=== PATIENT | male | born 1965 | race Caucasian/White ===

== ENCOUNTER 2016-07-30 17:02 | Emergency (ER) | payer SELFPAY ==
[2016-07-30] MEDS ORDERED: Lidocaine 1% w/Epinephrine 1:100K 20 ML VIAL ONE (17:12)
[2016-07-30] MEDS ORDERED: Bacitracin Zinc 1 Packet ONE (18:28)
--- NOTE | 2016-07-30 18:28 | RAD ---
TWO VIEWS LEFT KNEE: DATE: 07/30/16. PROVIDED CLINICAL HISTORY: Soft tissue injury. FINDINGS: No evidence for a fracture or other acute osseous abnormality. No evidence for radiopaque foreign b solitario. Mild knee joint capsular distention may reflect effusion. IMPRESSION: As above. POS: JANETT
--- NOTE | 2016-07-30 19:15 | ERRECORD ---
[facility] EMERGENCY RECORD HPI LACERATION (21:28 BPIC) CHIEF COMPLAINT: Patient presents for evaluation of laceration to knee, on the left, 4.1-8.0cm in length, through subcutaneous fascia, Foreign body present, Grossly contaminated. HISTORIAN: History provided by patient, pt was using a chainsaw and it slipped and went through his jeans and cut his anterior knee. sharp pain worse with movement or palpation of the knee. bleeding controlled. MECHANISM OF INJURY: Known mechanism. LOCATION: Symptoms are localized, most severe to jagged edges left anterior knee. ROS (21:30 BPIC) CONSTITUTIONAL: Negative constitutional review of systems. EYES: Negative eye review of systems. ENT: Negative ears, nose, throat review of systems. CARDIOVASCULAR: Negative cardiovascular review of systems. RESPIRATORY: Negative respiratory review of systems. GI: Negative gastrointestinal review of systems. MUSCULOSKELETAL: see hpi. SKIN: Negative skin review of systems. PSYCHIATRIC: Negative psychiatric review of systems. NOTES: All other ROS is negative except as listed in HPI. PAST MEDICAL HISTORY MEDICAL HISTORY: No past medical history, Notes: tetanus completed 2 years ago, Tetanus immunization up to date, Date of immunization: 07/30/2015 17:07. (17:08 MCBE) MALE SURGICAL HISTORY: Patient has no surgical history. (17:08 MCBE) PSYCHIATRIC HISTORY: No previous psychiatric history. (17:08 MCBE) SOCIAL HISTORY: Patient denies alcohol use, Patient denies drug use, Patient currently uses tobacco, smokes cigarettes. (17:08 MCBE) NOTES: I have reviewed and agree with the PMH/PSxH/FamHx/SocHx obtained by the nurse. (21:30 BPIC) KNOWN ALLERGIES No Known Drug Allergies CURRENT MEDICATIONS (17:06 MCBE) None VITAL SIGNS VITAL SIGNS: BP: 141/93, Pulse: 101, Resp: 18, Temp: 96.8 (Oral), Pain: 3, O2 sat: 97 on Room Air, Time: 07/30/2016 17:04. (17:04 MCBE) BP: 138/89, Pulse: 100, Resp: 18, Temp: 98.1, Pain: 0, O2 sat: 98 on RA, Time: 07/30/2016 18:41. (18:41 MCBE) &a-1R&a+25V*p+0X*a1112M*c152B*c15G*c2P*p-0X&a-25V&a+1RName: Rene Palacios : 1965 M51 MedRec: [id number] AcctNum: [id number] Prepared: ThuJul 30, 2016 21:39 by Interface Page 1 of 3 pMD [facility] EMERGENCY RECORD PHYSICAL EXAM CONSTITUTIONAL: Vital signs reviewed, Patient afebrile, Pulse normal, Blood pressure normal, Respiratory rate normal, Patient appears non toxic, Patient appears pain free, Patient alert and oriented to person, place and time. (21:30 BPIC) HEAD: Head exam included findings of head atraumatic, normocephalic. (21:30 BPIC) EYES: Eye exam included findings of eyelids normal to inspection, Pupils equally round and reactive to light, Extraocular muscles intact. (21:30 BPIC) ENT: ENT exam normal. (21:30 BPIC) NECK: Neck exam included findings of normal range of motion, Trachea midline. (21:30 BPIC) RESPIRATORY CHEST: Respiratory exam included findings of no respiratory distress, Breath sounds clear. (21:30 BPIC) CARDIOVASCULAR: Cardiovascular exam included findings of heart rate regular rate and rhythm, Heart sounds normal. (21:30 BPIC) LOWER EXTREMITY: 6 cm jagged laceration with smita particles and dirt within wound to the left anterior knee. base of wound visualized after cleaning in full range of motion of the knee. joint capsule not disturbed. fascia covering patella visualized. (21:31 BPIC) NEURO: Neuro exam findings include patient oriented to person, place and time, Speech normal. (21:30 BPIC) PSYCHIATRIC: Psychiatric exam included findings of patient oriented to person place and time, Normal affect. (21:30 BPIC) DOCTOR NOTES (21:32 BPIC) TEXT: I discussed the diagnosis with the patient prior to discharge. All questions were answered. There is no indication for admission currently and the patient will follow up with his primary care physician. Any pertinent labs or imaging was reviewed and dicussed with the patient. If any new or emergent symptoms occur, the patient will return to the emergency department. PROBLEM LIST No recorded problems DIAGNOSIS (18:31 BPIC) FINAL: PRIMARY: left knee laceration - complicated. PRESCRIPTION (18:32 BPIC) Keflex: CAPSULE : 500 mg : ORAL : Quantity: 500 Unit: mg Route: ORAL Schedule: 2 times a day Dispense: 10 Unit: cap(s) May substitute. Refills: No Refills . NOTES: No Refills. traMADol: TABLET : 50 mg : ORAL : Quantity: 50 Unit: mg Route: ORAL Schedule: every 6 hours PRN Dispense: 20 Unit: tab(s) May substitute. Refills: No Refills . NOTES: ^s=No Refills &a-1R&a+25V*p+0X*q4453I*c152B*c15G*c2P*p-0X&a-25V&a+1RName: Rene Palacios : 1965 [facility] [place] MedRec: [id number] AcctNum: [id number] Prepared: ThuJul 30, 2016 21:39 by Interface Page 2 of 3 pMD [facility] EMERGENCY RECORD No Refills. DISPOSITION PATIENT: Disposition Type: Discharge, Disposition: *Discharge Home, Condition: Good. (18:31 BPIC) Patient left the department. (18:43 MCBE) Velasquez: BPIC=MD Saeed Bryan MCBE=Elsie Brown &a-1R&a+25V*p+0X*o1511R*c152B*c15G*c2P*p-0X&a-25V&a+1RName: Rene Palacios : 1965 [facility] [place] MedRec: [id number] AcctNum: [id number] Prepared: ThuJul 30, 2016 21:39 by Interface Page 3 of 3 pMD MTDD
--- NOTE | 2016-07-30 19:18 | PICIS ---
[facility] EMERGENCY RECORD TRIAGE (ThuJul 30, 2016 17:06 MCBE) PATIENT: NAME: Rene Palacios, AGE: 51, GENDER: male, : Thu1965, TIME OF GREET: ThuJul 30, 2016 17:02, ECODE BILLING MAP: [facility], Zip Code: [address], KG WEIGHT: [phone], PHONE: , , , PERSON ID: [id number]. (ThuJul 30, 2016 17:06 MCBE) TRIAGE NOTES: cut leg on chainsaw. 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 bleeding controlled at time. (ThuJul 30, 2016 17:06 MCBE) COMPLAINT: LEFT KNEE LAC. (ThuJul 30, 2016 17:06 MCBE) ADMISSION: URGENCY: 3 Urgent, ADMISSION SOURCE: Home, TRANSPORT: CAR, BED: [facility]. (ThuJul 30, 2016 17:06 MCBE) ASSESSMENT: Assessment: lac to left knee. bleeding controlled. wrap and splint removed to observe injury. (17:08 MCBE) SIRS SCORING: Heart Rate 55-109 (0), Temp range 96.8-101.1 (0), respiratory rate 12-24 (0), Mental Status altered: no (0), Infection or Suspected Infection: No. (17:08 MCBE) TRIAGE SCREENING: Patient denies suicidal ideation, Patient denies presence of domestic violence. (17:08 MCBE) PROVIDERS: TRIAGE NURSE: Elsie Brown. (ThuJul 30, 2016 17:06 MCBE) VITAL SIGNS: BP 141/93, Pulse 101, Resp 18, Temp 96.8, (Oral), Pain 3, O2 Sat 97, on Room Air, Time 07/30/2016 17:04. (17:04 MCBE) KNOWN ALLERGIES No Known Drug Allergies CURRENT MEDICATIONS (17:06 MCBE) None VITAL SIGNS VITAL SIGNS: BP: 141/93, Pulse: 101, Resp: 18, Temp: 96.8 (Oral), Pain: 3, O2 sat: 97 on Room Air, Time: 07/30/2016 17:04. (17:04 MCBE) BP: 138/89, Pulse: 100, Resp: 18, Temp: 98.1, Pain: 0, O2 sat: 98 on RA, Time: 07/30/2016 18:41. (18:41 MCBE) NURSING ASSESSMENT: EXTREMITY LOWER (17:10 MCBE) CONSTITUTIONAL: Complex assessment performed, Patient arrives ambulatory, Gait steady, History obtained from patient, Patient appears comfortable, Patient cooperative, Patient alert, Oriented to person, place and time, Skin warm, Skin dry, Skin normal in color, Mucous membranes pink, Mucous membranes moist, Patient is well-groomed, Patient complains of left knee lac. LEFT LOWER EXTREMITY: Left lower extremity assessment findings include capillary refill less than 2 seconds, Skin color normal, Skin temperature warm, Distal sensation intact, Muscle tone normal, posterior tibia pulse is +3, dorsalis pedis pulse is +3, Inspection findings include laceration, to knee, bleeding controlled, Inspection findings include no pressure ulcers to the hip, Inspection findings include no pressure ulcer to the sacrum, Inspection findings include no pressure ulcer to the heel, &a-1R&a+25V*p+0X*z4728T*c152B*c15G*c2P*p-0X&a-25V&a+1RName: Rene Palacios : 1965 M51 MedRec: [id number] AcctNum: [id number] Prepared: ThuJul 30, 2016 21:46 by Interface Page 1 of 5 pMD [facility] EMERGENCY RECORD Inspection findings include no pressure ulcer, Inspection findings include signs of trauma, to knee. RIGHT LOWER EXTREMITY: Right lower extremity assessment findings include capillary refill less than 2 seconds, Skin color normal, Skin temperature warm, Distal sensation intact, Muscle tone normal, posterior tibia pulse is +3, dorsalis pedis pulse is +3, Inspection findings include no pressure ulcers to the hip, Inspection findings include no pressure ulcer to the sacrum, Inspection findings include no pressure ulcer to the heel, Inspection findings include no pressure ulcer. NURSING PROCEDURE: DISCHARGE NOTE (18:41 MCBE) DISCHARGE: Patient discharged to home, ambulating without assistance, family driving, accompanied by other family member, Summary of Care printed/ provided, Discharge instructions given to patient, Simple or moderate discharge teaching performed, by ELSIE ANGEL, EXPLAINED DISCHARGE INSTRUCTIONS. INSTRUCTED TO RETURN IF S/S WORSEN. INSTRUCTED TO COMPLETE ALL ANITBIOTICS. INFORMED PATIENT PRESCRIPTION CAN BE FILLED AT ANY PHARMACY, Prescriptions given and instructions on side effects given, Name of prescription(s) given: KEFLEX, TRAMADOL, Above person(s) verbalized understanding of discharge instructions and follow-up care, Patient treated and evaluated by physician. BELONGINGS: Belongings and valuables with patient upon arrival to the Emergency Department include:, Belongings and valuables with patient at time of discharge include:, pants, shirt, socks, Belongings remain with patient, Valuables remain with patient. VITAL SIGNS: BP: 138, / 89, Pulse: 100, Resp: 18, Temp: 98.1, Pain: 0, O2 sat: 98, on: RA, Time: 1830. NURSING PROCEDURE: DRESSING (18:33 [facility]) PATIENT IDENTIFIER: Patient actively involved in identification process, Patient's identity verified by patient stating name, Patient's identity verified by patient stating date, Patient's identity verified by hospital ID bracelet. DRESSING: Dressing indicated to promote wound healing, Dressing indicated to prevent wound complications, Simple dressing, applied, No drainage present, no drainage from site, to LEFT KNEE, Applied telfa pad dressing, Wrapped with 4 inch coban, Notes: BACTRICIN APPLIED. ORDER DETAILS Order Name: Miscellaneous Nurse Order(s), Status: Done, Time: 18:36 07/30/2016, User: [employer], - Ordered for: MD Saeed Bryan, - Entered by: Elsie Brown - ThuJul 30, 2016 18:36, - Quantity: 1, Order Name: XR Knee Lt 4 View STANDARD, Status: Canceled, Time: 17:41 07/30/2016, User: System, - Ordered for: MD Saeed Bryan, &a-1R&a+25V*p+0X*r1623K*c152B*c15G*c2P*p-0X&a-25V&a+1RName: Rene Palacios : 1965 M51 MedRec: [id number] AcctNum: [id number] Prepared: ThuJul 30, 2016 21:46 by Interface Page 2 of 5 [facility] EMERGENCY RECORD - Entered by: Elsie Brown - ThuJul 30, 2016 17:10, - Quantity: 1. HPI LACERATION (21:28 BPIC) CHIEF COMPLAINT: Patient presents for evaluation of laceration to knee, on the left, 4.1-8.0cm in length, through subcutaneous fascia, Foreign body present, Grossly contaminated. HISTORIAN: History provided by patient, pt was using a chainsaw and it slipped and went through his jeans and cut his anterior knee. sharp pain worse with movement or palpation of the knee. bleeding controlled. MECHANISM OF INJURY: Known mechanism. LOCATION: Symptoms are localized, most severe to jagged edges left anterior knee. ROS (21:30 BPIC) CONSTITUTIONAL: Negative constitutional review of systems. EYES: Negative eye review of systems. ENT: Negative ears, nose, throat review of systems. CARDIOVASCULAR: Negative cardiovascular review of systems. RESPIRATORY: Negative respiratory review of systems. GI: Negative gastrointestinal review of systems. MUSCULOSKELETAL: see hpi. SKIN: Negative skin review of systems. PSYCHIATRIC: Negative psychiatric review of systems. NOTES: All other ROS is negative except as listed in HPI. PAST MEDICAL HISTORY MEDICAL HISTORY: No past medical history, Notes: tetanus completed 2 years ago, Tetanus immunization up to date, Date of immunization: 07/30/2015 17:07. (17:08 MCBE) MALE SURGICAL HISTORY: Patient has no surgical history. (17:08 MCBE) PSYCHIATRIC HISTORY: No previous psychiatric history. (17:08 MCBE) SOCIAL HISTORY: Patient denies alcohol use, Patient denies drug use, Patient currently uses tobacco, smokes cigarettes. (17:08 MCBE) NOTES: I have reviewed and agree with the PMH/PSxH/FamHx/SocHx obtained by the nurse. (21:30 BPIC) PHYSICAL EXAM CONSTITUTIONAL: Vital signs reviewed, Patient afebrile, Pulse normal, Blood pressure normal, Respiratory rate normal, Patient appears non toxic, Patient appears pain free, Patient alert and oriented to person, place and time. (21:30 BPIC) HEAD: Head exam included findings of head atraumatic, normocephalic. (21:30 BPIC) EYES: Eye exam included findings of eyelids normal to inspection, Pupils equally round and reactive to light, Extraocular muscles &a-1R&a+25V*p+0X*h5854H*c152B*c15G*c2P*p-0X&a-25V&a+1RName: Rene Palacios : 1965 M51 MedRec: [id number] AcctNum: [id number] Prepared: ThuJul 30, 2016 21:46 by Interface Page 3 of 5 pMD [facility] EMERGENCY RECORD intact. (21:30 BPIC) ENT: ENT exam normal. (21:30 BPIC) NECK: Neck exam included findings of normal range of motion, Trachea midline. (21:30 BPIC) RESPIRATORY CHEST: Respiratory exam included findings of no respiratory distress, Breath sounds clear. (21:30 BPIC) CARDIOVASCULAR: Cardiovascular exam included findings of heart rate regular rate and rhythm, Heart sounds normal. (21:30 BPIC) LOWER EXTREMITY: 6 cm jagged laceration with smita particles and dirt within wound to the left anterior knee. base of wound visualized after cleaning in full range of motion of the knee. joint capsule not disturbed. fascia covering patella visualized. (21:31 BPIC) NEURO: Neuro exam findings include patient oriented to person, place and time, Speech normal. (21:30 BPIC) PSYCHIATRIC: Psychiatric exam included findings of patient oriented to person place and time, Normal affect. (21:30 BPIC) EVENTS TRANSFER: Triage to Emergency Emergency Room -05. (ThuJul 30, 2016 17:06 MCBE) Removed from Emergency Emergency Room -05. (18:43 MCBE) DOCTOR NOTES (21:32 BPIC) TEXT: I discussed the diagnosis with the patient prior to discharge. All questions were answered. There is no indication for admission currently and the patient will follow up with his primary care physician. Any pertinent labs or imaging was reviewed and dicussed with the patient. If any new or emergent symptoms occur, the patient will return to the emergency department. LACERATION-SINGLE REPAIR (18:28 BPIC) TIMEOUT: Side and/or site verified. LACERATION REPAIR: Side and/or site verified, Verbal consent obtained, Wound contaminated with, dirt, clothing, Deep structures involved, joint involvement, knee, No pulse deficit, Capillary refill less than 2 seconds, Distal motor intact, Distal sensation intact, Local infiltration with, 1% LIDOCAINE with epinephrine, 8mL, Patient prepped and draped in usual sterile fashion, Wound irrigated with normal saline, (mls) 1.5 L and chloraprep rinse and brush scrub, Complex repair of laceration, to the leg, anterior knee, jagged, debridement and trimmed margins, total length 6.0 cm, Skin layer closed, using 3.0, prolene suture, 4 sutures, horizontal mattress, Subcutaneous fascia closed, using 4.0, vicryl suture, 2 sutures, Subcutaneous fascia closed with horizontal mattress, After procedure, wound well approximated, antibiotic ointment applied, dressing applied, No complications, Tetanus status up to date, Patient tolerated the procedure well, 2 additional single interrupted 3-0 Prolene on skin level. clothing material removed from wound with irrigation and forceps, Foreign body present. &a-1R&a+25V*p+0X*v0159P*c152B*c15G*c2P*p-0X&a-25V&a+1RName: Rene Palacios : 1965 M51 MedRec: [id number] AcctNum: [id number] Prepared: ThuJul 30, 2016 21:46 by Interface Page 4 of 5 pMD [facility] EMERGENCY RECORD PROBLEM LIST No recorded problems DIAGNOSIS (18:31 BPIC) FINAL: PRIMARY: left knee laceration - complicated. DISPOSITION PATIENT: Disposition Type: Discharge, Disposition: *Discharge Home, Condition: Good. (18:31 BPIC) Patient left the department. (18:43 MCBE) INSTRUCTION (18:33 BPIC) DISCHARGE: EXTREMITY LACERATION. FOLLOWUP: JANELL, -, Primary Care Referral Line, . SPECIAL: Thank you for choosing [facility] Emergency Department for your care today! Please follow up with your primary doctor or return to the ED in the 14 days for suture removal. Return to the emergency department with any other worsening or emergent symptoms. God bless you!. PRESCRIPTION (18:32 BPIC) Keflex: CAPSULE : 500 mg : ORAL : Quantity: 500 Unit: mg Route: ORAL Schedule: 2 times a day Dispense: 10 Unit: cap(s) May substitute. Refills: No Refills . NOTES: No Refills. traMADol: TABLET : 50 mg : ORAL : Quantity: 50 Unit: mg Route: ORAL Schedule: every 6 hours PRN Dispense: 20 Unit: tab(s) May substitute. Refills: No Refills . NOTES: ^s=No Refills No Refills. IMAGING *DISCHARGE INSTRUCTIONS RECEIPT: Image captured from scanner. (18:42 MCBE) *SUPPLY CHARGE SHEET: Image captured from scanner. (18:43 MCBE) ADMIN (21:32 [facility]) DIGITAL SIGNATURE: MD Saeed Bryan. Velasquez: BPIC=MD Saeed Bryan MCBE=Elsie Brown &a-1R&a+25V*p+0X*u9273P*c152B*c15G*c2P*p-0X&a-25V&a+1RName: Rene Palacios : 1965 M51 MedRec: [id number] AcctNum: [id number] Prepared: ThuJul 30, 2016 21:46 by Interface Page 5 of 5 pMD MTDD
== END 2016-07-30 18:41 | disposition home or self-care (01) ==
LOC: NAV ERS 17:02
DX: S81.022A Laceration with foreign body, left knee, initial encounter (principal); F17.210 Nicotine dependence, cigarettes, uncomplicated; W45.8XXA Other foreign body or object entering through skin, initial encounter
CPT/HCPCS: 12032; J2001

== ENCOUNTER 2025-04-17 18:23 | Emergency (ER) | payer OTHER ==
[2025-04-17 19:31] LABS: #Basophils 0.1 thou/uL (0.0-0.2); #Eosinophils 0.2 thou/uL (0.0-0.7); #Lymphocytes 1.3 thou/uL (1.20-3.40); #Monocytes 0.3 thou/uL (0.11-0.59); #Neutrophils 4.0 thou/uL (1.40-6.50); %Basophils 1.1 % (0.0-1.0); %Eosinophils 3.4 % (0.0-10.0); %Lymphocytes 21.5 % (21.0-51.0); %Monocytes 5.1 % (0.0-10.0); %Neutrophils 68.9 % (42.0-75.0); Hematocrit 34.8 % (42.0-52.0); Hemoglobin 11.8 g/dL (14.0-18.0); Mean Corpuscular Hemoglobin 27.0 pg (27.0-31.0); Mean Corpuscular Volume 79.7 fl (78.0-98.0); Platelet Count 340 10x3/uL (130-400); Red Blood Cell (RBC) Count 4.37 mill/uL (4.70-6.10); White Blood Cell (WBC) Count 5.8 10x3/uL (4.8-10.8)
[2025-04-17 19:42] LABS: INR-International Normal Ratio 1.1; Prothrombin Time 14.3 sec (12.0-14.7)
[2025-04-17 19:43] LABS: PTT 31.0 sec (22.9-36.1)
== END 2025-04-17 19:58 | disposition home or self-care (01) ==
LOC: NAV ERS 18:23
DX: R04.2 Hemoptysis (principal); I25.2 Old myocardial infarction; E78.5 Hyperlipidemia, unspecified; F17.210 Nicotine dependence, cigarettes, uncomplicated; Z79.899 Other long term (current) drug therapy
CPT/HCPCS: 36415; 71046; 85025; 85610; 85730